=== PATIENT | female | born 1960 | race American Indian/Alaskan Native ===

== ENCOUNTER 2017-03-06 08:07 | Outpatient (CLI) | payer BC ==
--- NOTE | 2017-03-06 10:09 | Mammography Report ---
Bilateral mammogram: Compared to 02/28/16. CAD study utilized. Findings: Scattered glandular parenchyma. No mass or microcalcification. Benign axillary nodes. Impression: Benign findings. Followup recommended. BI-RADS CATEGORY: 2 = Benign ACR BI-RADS MAMMOGRAPHIC CODES: 0 = Needs additional imaging evaluation; 1 = Negative; 2 = Benign; 3 = Probably benign; 4 = Suspicious; 5 = Malignant; 6 = Known biopsy-proven malignancy COMMENT: 1. Dense breast tissue, i.e., adenosis, fibrocystic changes, etc., may obscure an underlying neoplasm. 2. Approximately 10% of cancers are not detected with mammography. 3. A negative mammography report should not delay biopsy if a clinically suspicious mass is present. COMMENT: Patient follow-up letters are generated in [employer].
== END 2017-03-06 08:08 | disposition home or self-care (01) ==
LOC: MAMMO 08:07
PROVIDERS: ATTEND Nurse Practitioner Women's Health
DX: Z12.31 Encounter for screening mammogram for malignant neoplasm of breast (principal)
CPT/HCPCS: 77067; G0202

== ENCOUNTER 2018-03-07 08:01 | Outpatient (CLI) | payer BC ==
--- NOTE | 2018-03-07 14:37 | Mammography Report ---
BILATERAL DIGITAL SCREENING MAMMOGRAM with CAD: 03/07/18 08:01:00 CLINICAL: Routine screening. COMPARISON:03/06/17 and 02/28/16 FINDINGS: The breasts are heterogeneously dense, which may obscure small masses. A left axillary lymph node on the MLO view has minimal central fat, measures 3.6 cm maximum and requires additional imaging.No mass, architectural distortion or suspicious calcifications. IMPRESSION: An enlarged left axillary lymph node with abnormal morphology requiring further workup. BI-RADS CATEGORY: 0 -- Additional Imaging Evaluation Required RECOMMENDATION: Recall for a left axillary ultrasound and global left breast ultrasound. ACR BI-RADS MAMMOGRAPHIC CODES: 0 = Needs additional imaging evaluation; 1 = Negative; 2 = Benign; 3 = Probably benign; 4 = Suspicious; 5 = Malignant; 6 = Known biopsy-proven malignancy COMMENT: 1. Dense breast tissue, i.e., adenosis, fibrocystic changes, etc., may obscure an underlying neoplasm. 2. Approximately 10% of cancers are not detected with mammography. 3. A negative mammography report should not delay biopsy if a clinically suspicious mass is present. COMMENT: Patient follow-up letters are generated via our [employer] application.
== END 2018-03-07 08:02 | disposition home or self-care (01) ==
LOC: MAMMO 08:01
PROVIDERS: ATTEND Nurse Practitioner Women's Health
DX: Z12.31 Encounter for screening mammogram for malignant neoplasm of breast (principal)
CPT/HCPCS: 77067

== ENCOUNTER 2018-04-18 09:28 | Outpatient (CLI) | payer BC ==
--- NOTE | 2018-04-25 16:34 | Ultrasound Report ---
LEFT BREAST ULTRASOUND: 04/18/18 09:28:00 CLINICAL: Enlarged left axillary lymph node on a screening mammogram. COMPARISON: 03/07/18 mammogram. FINDINGS: Ultrasound of the left breast(including all four quadrants and the retroareolar area) was performed and demonstrated no mass, cyst or shadowing. Ultrasound of the left axilla demonstrated an enlarged abnormal lymph node with minimal central fat. The lymph node measures 3.3 x 2.3 x 2.3 cm. IMPRESSION: An enlarged left axillary lymph node with abnormal morphology and otherwise negative left breast ultrasound. Recommend ultrasound guided biopsy of the left axillary lymph node to exclude malignancy. BI-RADS 4--Suspicious
== END 2018-04-18 09:29 | disposition home or self-care (01) ==
LOC: US 09:28
PROVIDERS: ATTEND Nurse Practitioner Women's Health
DX: R92.8 Other abnormal and inconclusive findings on diagnostic imaging of breast (principal); R59.0 Localized enlarged lymph nodes; Z88.1 Allergy status to other antibiotic agents; Z88.8 Allergy status to other drugs, medicaments and biological substances

== ENCOUNTER 2019-03-11 10:13 | Outpatient (CLI) | payer BC ==
--- NOTE | 2019-03-11 11:11 | Mammography Report ---
BILATERAL DIGITAL DIAGNOSTIC MAMMOGRAM with CAD: 03/11/19 10:13:00 CLINICAL: Known left breast cancer diagnosed by stereotactic biopsy 09/12/18. Pathology: Invasive lobular carcinoma. She also had an MRI biopsy on 09/20/18 demonstrating ADH. She has not had surgery. COMPARISON:08/27/18 bilateral mammogram and left mammograms from 09/20/18 and 09/12/18. FINDINGS: The breasts are heterogeneously dense, which may obscure small masses.A stable irregular left upper inner mass with a biopsy clip correlates with the known cancer. No other mass. No architectural distortion or suspicious calcifications. The right breast is negative. IMPRESSION: Left breast cancer with a stable mammogram. Negative right breast. BI-RADS CATEGORY: 6 -- Known Cancer COMMENT: 1. Dense breast tissue, i.e., adenosis, fibrocystic changes, etc., may obscure an underlying neoplasm. 2. Approximately 10% of cancers are not detected with mammography. 3. A negative mammography report should not delay biopsy if a clinically suspicious mass is present. COMMENT: Patient follow-up letters are generated by our [employer] application.
== END 2019-03-11 10:14 | disposition home or self-care (01) ==
LOC: SPVWC 10:13
PROVIDERS: ATTEND Surgery
DX: C50.912 Malignant neoplasm of unspecified site of left female breast (principal)
CPT/HCPCS: 77066

== ENCOUNTER 2019-04-28 08:22 | Observation (INO) | payer BC ==
[2019-04-28] MEDS ORDERED: SUBLIMAZE IV NR (09:11)
--- NOTE | 2019-04-28 09:11 | Anesthesia Consultation ---
Anesthesia Consult and Med Hx Date of service: 04/28/19 - Airway Anesthetic Teeth Evaluation: Good ROM Head & Neck: Adequate Mental/Hyoid Distance: Adequate Mallampati Class: Class II Intubation Access Assessment: Good - Pulmonary Exam CTA: Yes - Cardiac Exam Cardiac Exam: RRR - Pre-Operative Health Status ASA Pre-Surgery Classification: ASA3 Proposed Anesthetic Plan: General Nerve Block: B/L PEC Block - Pulmonary Hx Smoking: No Hx Asthma: Yes (INHALER PRN) Hx Sleep Apnea: No (ARPAN PRE SCREEN LOW RISK) - Cardiovascular System Hx Hypertension: Yes (2006- OFF MEDS X 1 YR) Hx Heart Murmur: Yes (CAUSES NO PROBLEMS) - Central Nervous System Hx Back Pain: Yes (NECK PAIN) - Additional Comments Anesthesia Medical History Comments: Cardiac clearance on chart , for PEC Block
--- NOTE | 2019-04-28 09:11 | Anesthesia Day of Surgery ---
Anesthesia Day of Surgery - Day of Surgery Patient Examined: Yes Patient H&P Reviewed: Yes Patient is NPO: Yes
[2019-04-28] MEDS ORDERED: XYLOCAINE 1% 20 mL ONE (09:31)
[2019-04-28] MEDS ORDERED: MARCAINE-EPI 0.5%-1:200,000 INFILTRATI ONE (09:32)
[2019-04-28] MEDS ORDERED: VERSED IV NR (10:00)
[2019-04-28] MEDS ORDERED: VANCOMYCIN/NS 1 GM/250 ML 1 GM/250 ML BAG IV NR (10:00)
[2019-04-28] MEDS ORDERED: DIPRIVAN 10 MG/ML IV ONE (10:17)
[2019-04-28] MEDS ORDERED: PROAIR IH ONE (10:17)
[2019-04-28] MEDS ORDERED: SUBLIMAZE ONE (10:18)
[2019-04-28] MEDS: LACTATED RINGERS 1,000 ML IV SCH ×2 (10:20→23:41)
[2019-04-28] MEDS ORDERED: NACL P/F VIAL (10 ML) 10 ML ONE (10:46)
[2019-04-28] MEDS ORDERED: METHYLENE BLUE ONE (10:47)
[2019-04-28] MEDS ORDERED: PHENYLEPHRINE/NS Syringe 1,000 MCG/10 ML IV ONE (12:00)
[2019-04-28] MEDS ORDERED: WATER FOR IRRIG STERILE IR ONE (12:31)
[2019-04-28] MEDS ORDERED: ZEMURON IV ONE (12:45)
[2019-04-28] MEDS ORDERED: ZOFRAN ONE (12:45)
[2019-04-28] MEDS ORDERED: XYLOCAINE MPF 2% ONE (12:45)
[2019-04-28] MEDS ORDERED: METHYLENE BLUE IRRIGATION ONE (12:59)
[2019-04-28] MEDS ORDERED: NACL P/F VIAL (10 ML) INFILTRATI ONE (13:10)
--- NOTE | 2019-04-28 14:13 | Mammography Report ---
BREAST SPECIMEN RADIOGRAPH LEFT BREAST HISTORY: Left breast cancer. COMPARISON: 09/12/2018 mammogram FINDINGS/IMPRESSION: The submitted radiograph demonstrates 2 localizer clips in the mastectomy specimen. Signer Name: Catracho De La Garza MD Signed: 04/28/2019 2:08 PM Workstation Name: [id number]
[2019-04-28] MEDS ORDERED: BLOXIVERZ ONE (14:31)
[2019-04-28] MEDS ORDERED: ROBINUL ONE (14:31)
[2019-04-28] MEDS ORDERED: TORADOL ONE (14:31)
--- NOTE | 2019-04-28 14:31 | Short Stay Summary ---
Short Stay Documentation Date of service: 04/28/19 - History H&P: obtained from office - Allergies and Medications Current Medications: Allergies doxycycline Allergy (Verified 09/19/18 16:34) Itching Penicillins Allergy (Verified 09/19/18 16:34) Itching prednisone Allergy (Verified 09/19/18 16:34) Shortness of Breath Sulfa (Sulfonamide Antibiotics) Allergy (Unverified 02/28/16 08:02) Itching sulfamethoxazole [From Bactrim] Allergy (Unverified 02/28/16 08:02) Itching trimethoprim [From Bactrim] Allergy (Unverified 02/28/16 08:02) Itching Home Medications Medication Instructions Recorded Confirmed Last Taken Type RX: Ascorbic Acid [Vitamin C] 1,000 mg PO DAILY 09/19/18 04/28/19 04/26/19 09:00 History RX: Calcium Carbonate [Calcium] 500 mg PO DAILY 09/19/18 04/28/19 04/26/19 09:00 History RX: Cyclobenzaprine [Flexeril 10 10 mg PO TID PRN 09/19/18 04/28/19 04/26/19 09:00 History MG TAB] RX: Fluticasone [Flonase] 1 spray NS PRN PRN 09/19/18 04/28/19 04/26/19 09:00 History RX: Multivitamin/Iron/Folic Acid 1 each PO DAILY 09/19/18 04/28/19 04/26/19 09:00 History [Centrum Adults Tablet] RX: Vitamin E 400 unit PO DAILY 09/19/18 04/28/19 04/26/19 09:00 History RX: ALBUTEROL Inhaler(NF) 1 puff IH PRN PRN 09/23/18 04/28/19 03/10/19 09:00 History [VENTOLIN Inhaler(NF)] Cholecalciferol (Vitamin D3) 2,000 unit PO QDAY 04/22/19 04/28/19 04/24/19 09:00 History [Vitamin D3 2,000 UNIT CAP] Active Medications Fentanyl (Sublimaze) 100 mcg IV ONCE NR Stop: 04/28/19 16:00 Lactated Ringer's (Lactated Ringers) 1,000 mls @ 100 mls/hr IV DIRECT GEORGIE Last Admin: 04/28/19 10:20 Dose: 100 mls/hr Documented by: Midazolam HCl (Versed) 2 mg IV PREOP NR Stop: 04/28/19 23:59 - Brief post op/procedure progress note Date of procedure: 04/28/19 Pre-op diagnosis: Left breast cancer of the upper outer quadrant Post-op diagnosis: same Procedure: Right total mastectomy, left total mastectmoy with SLNB Anesthesia: GETA Findings: Bilateral total mastectomy; left SLNB Surgeon: ELENA AGUILAR Volcanology Teacher: RAFY HOYT Estimated blood loss: 50-100ml Pathology: list (bilateral mastectomy; left SLNB x4 and negative for malignancy) Specimen disposition: to lab Condition: stable - Disposition Condition at discharge: Good Disposition: DC/TX-02 SHRT-[facility]M [facility] HOSP IP Short Stay Discharge Plan Activity: other (no heavy lifting) Diet: regular Wound: keep clean and dry (may shower in 48 hours) Follow up with: ADI KAUFMAN MD [Primary Care Provider] - 7 Days ELENA AGUILAR MD [Staff Physician] - 7 Days
--- NOTE | 2019-04-28 14:36 | Operative Report ---
Operative Report Operative Report: Operative Report: Date of Service: April 28, 2019 Preoperative diagnosis: Left breast cancer of the upper inner quadrant Postoperative diagnosis: Same Procedure: Left total mastectomy with sentinel lymph node biopsy Surgeon: Bethany Scherer M.D. Wood Last Maker: Nasreen Payne M.D. Anesthesia: Gen. Findings: Left breast clip present within left total mastectomy; x4 SLNs and negative for malignancy. Complications: None Drains: Bilateral 19 Fr drains Estimated blood loss: 50- 100 cc Disposition: PACU in good condition Indications for operative procedure: This is a 58-year-old lady with stage II left breast cancer of the upper inner quadrant, IDCA grade 3 [id number] ER pos itive. She recently completed neoadjuvant chemotherapy. Recommendations were to proceed with a left total mastectomy with SLNB and possible ALND, did not recommend breast conservation given concerns multicentruic breast cancer. She wished to proceed with the above procedure and declined plastic reconstructive surgery. Procedure in detail: The patient was taken to the operating room and was placed supine. Gen. anesthesia was administered. The left nipple was injected with radioisotope and 1 cc of methylene blue with 1 cc of saline. Bilateral chest and axillas were prepped and draped in the normal sterile operative fashion. Timeout was performed. Typical mastectomy incision markings were made. Attention was taken towards the right breast first. First began raising of the superior flap to the level of the clavicle superiorly and posteriorly to the pectoralis muscle. Followed by raising of the medial flap to the level of the sternum and posteriorly to the pectoralis muscle. Followed by raising of the lateral flap to the level of the latissimus dorsi muscle and taken down posteriorly. Then proceeded with raising of the inferior flap to the level of the inframammary fold taken posterior to the pectoralis muscle. The mastectomy/breast was removed from the pectoralis muscle without incident. The specimen was appropriately marked and sent to pathology. Hemostasis was obtained. One 19 Fr drain was placed. The subcutaneous tissues were approximated and closed using interrupted 3-0 Vicryl and the skin closed using a 4-0 running Monocryl and dermabond. Attention was then taken towards the left breast. A gamma probe was inserted into the axilla to identify the sentinel lymph node location with uptake noted. A skin incision was made with a 10 blade knife and dissection taken down to the subcutaneous tissues. First began raising of the superior flap to the level of the clavicle superiorly and posteriorly to the pectoralis muscle. Followed by raising of the medial flap to the level of the sternum and posteriorly to the pectoralis muscle. Followed by raising of the lateral flap to the level of the latissimus dorsi muscle and taken down posteriorly. The gamma probe was inserted into the axilla, the axillary fascia was opened and 4 sentinel lymph nodes were identified and sent to pathology, one lymph node positive prior to chemotherapy. All remaining counts were less than 10% of the highest count lymph node. Pathology with findings with all sentinel lymph nodes negative for malignancy noted on frozen section. Then proceeded with raising of the inferior flap to the level of the inframammary fold taken posterior to the pectoralis muscle. The mastectomy/breast was removed from the pectoralis muscle without incident. The specimen was appropriately marked and sent to radiology with findings of breast clip present and sent to pathology. Hemostasis was obtained. One 19 Fr drain was placed. The subcutaneous tissues were approximated and closed using interrupted 3-0 Vicryl and the skin closed using a 4-0 running Monocryl and dermabond. She tolerated surgery very well and was awaken from anesthesia without any complications and then transported to PACU in good condition.
[2019-04-28] MEDS ORDERED: TYLENOL PO PRN (14:37)
[2019-04-28] MEDS ORDERED: SODIUM CHLORIDE FLUSH SYRINGE 10 ML IV PRN (14:37)
[2019-04-28] MEDS ORDERED: REGLAN PO PRN (14:37)
[2019-04-28] MEDS ORDERED: ZOFRAN IV PRN (14:37)
[2019-04-28] MEDS ORDERED: BENADRYL PO PRN (14:37)
[2019-04-28] MEDS ORDERED: MORPHINE IV PRN (14:39)
[2019-04-28] MEDS ORDERED: LACTATED RINGERS 2,000 ML ONE (14:47)
[2019-04-28] MEDS ORDERED: LACTATED RINGERS 1,000 ML IV SCH (15:00)
[2019-04-28] MEDS: DILAUDID IV PRN ×2 (15:13→15:30)
[2019-04-28] MEDS ORDERED: DILAUDID ONE (15:14)
[2019-04-28] MEDS ORDERED: FLONASE NS PRN (17:24)
[2019-04-28] MEDS ORDERED: PROAIR IH PRN (17:24)
[2019-04-28] MEDS ORDERED: PROVENTIL IH PRN (17:27)
--- NOTE | 2019-04-29 07:28 | Progress Note ---
Assessment and Plan This is a 58 year old lady POD# bilateral mastectomy with left SLNB. 1. No acute events overnight. Pain in good control. 2. Bilateral chest incisions healing well. 3. HENNA drains to bulb suction. Monitor output. 4. OOB to hallway. 5. D/C planning for today/tomorrow. Subjective Date of service: 04/29/19 Principal diagnosis: Left breast cancer Interval history: POD#1 bilateral mastectomy with left SLNB Objective - Constitutional Vitals: Vital Signs - 12hr 04/28/19 04/28/19 04/28/19 20:35 20:40 20:46 Temperature 97.4 F L Pulse Rate 79 Pulse Rate [ 80 Anterior Bilateral Upper Lobe] Respiratory 18 Rate Respiratory 20 Rate [Anterior Bilateral Upper Lobe] Blood Pressure 108/71 O2 Sat by Pulse 99 99 Oximetry 04/29/19 04/29/19 00:02 04:32 Temperature 98.2 F 98.4 F Pulse Rate 93 H 89 Pulse Rate [ Anterior Bilateral Upper Lobe] Respiratory 20 20 Rate Respiratory Rate [Anterior Bilateral Upper Lobe] Blood Pressure 123/67 106/55 O2 Sat by Pulse 97 97 Oximetry General appearance: Present: no acute distress - EENT Eyes: PERRL, EOM intact ENT: hearing intact, clear oral mucosa Ears: bilateral: normal - Neck Neck: supple - Respiratory Respiratory effort: normal Respiratory: bilateral: CTA - Breasts Breasts: other (bilateral chest incisions healing well, no hematoma; incision c/d/i; HENNA drains to bulb suction; skin well perfused) - Cardiovascular Rhythm: regular Extremities: no ischemia, pulses intact, pulses symmetrical, No edema, normal temperature, normal color, Full ROM - Gastrointestinal General gastrointestinal: Present: soft, non-tender, non-distended - Genitourinary Female genitourinary: deferred - Integumentary Integumentary: clear, warm, dry - Musculoskeletal Musculoskeletal: strength equal bilaterally - Neurologic Neurologic: CNII-XII intact, moves all extremities - Psychiatric Psychiatric: appropriate mood/affect, intact judgment & insight, memory intact, cooperative Medications & Allergies - Medications Allergies/Adverse Reactions: Allergies doxycycline Allergy (Verified 09/19/18 16:34) Itching Penicillins Allergy (Verified 09/19/18 16:34) Itching prednisone Allergy (Verified 09/19/18 16:34) Shortness of Breath Sulfa (Sulfonamide Antibiotics) Allergy (Unverified 02/28/16 08:02) Itching sulfamethoxazole [From Bactrim] Allergy (Unverified 02/28/16 08:02) Itching trimethoprim [From Bactrim] Allergy (Unverified 02/28/16 08:02) Itching Home Medications: Home Medications Medication Instructions Recorded Confirmed Last Taken Type Ascorbic Acid [Vitamin C] 1,000 mg PO DAILY 09/19/18 04/28/19 04/26/19 09:00 History Calcium Carbonate [Calcium] 500 mg PO DAILY 09/19/18 04/28/19 04/26/19 09:00 History Cyclobenzaprine [Flexeril 10 MG 10 mg PO TID PRN 09/19/18 04/28/19 04/26/19 09:00 History TAB] Fluticasone [Flonase] 1 spray NS PRN PRN 09/19/18 04/28/19 04/26/19 09:00 History Multivitamin/Iron/Folic Acid 1 each PO DAILY 09/19/18 04/28/19 04/26/19 09:00 History [Centrum Adults Tablet] Vitamin E 400 unit PO DAILY 09/19/18 04/28/19 04/26/19 09:00 History ALBUTEROL Inhaler(NF) [VENTOLIN 1 puff IH PRN PRN 09/23/18 04/28/19 03/10/19 09:00 History Inhaler(NF)] Cholecalciferol (Vitamin D3) 2,000 unit PO QDAY 04/22/19 04/28/19 04/24/19 09:00 History [Vitamin D3 2,000 UNIT CAP] Active Medications: Generic Name Dose Route Start Last Admin Trade Name Freq PRN Reason Stop Dose Admin Acetaminophen 650 mg 04/28/19 14:37 Tylenol PO Q6H PRN Pain MILD(1-3)/Fever >100.5/PAK Albuterol 2.5 mg 04/28/19 17:27 04/28/19 20:40 Proventil IH 2.5 mg Q4HRT PRN Administration Shortness Of Breath Diphenhydramine HCl 25 mg 04/28/19 14:37 Benadryl PO Q8H PRN Itching Docusate Sodium 100 mg 04/28/19 22:00 Colace PO BID GEORGIE Fluticasone Propionate 50 mcg 04/28/19 17:24 Flonase NS DAILY PRN Allergy Symptoms Hydromorphone HCl 0.5 mg 04/28/19 15:09 04/28/19 15:30 Dilaudid IV 0.5 mg Q10MIN PRN Administration Pain , Severe (7-10) Lactated Ringer's 1,000 mls @ 100 mls/hr 04/28/19 10:00 04/28/19 23:41 Lactated Ringers IV 100 mls/hr DIRECT GEORGIE Administration Lactated Ringer's 1,000 mls @ 125 mls/hr 04/28/19 15:00 Lactated Ringers IV DIRECT GEORGIE Metoclopramide HCl 10 mg 04/28/19 14:37 Reglan PO Q6H PRN Nausea And Vomiting Morphine Sulfate 2 mg 04/28/19 14:39 Morphine IV Q4H PRN Pain, Moderate (4-6) Ondansetron HCl 4 mg 04/28/19 14:37 04/28/19 17:04 Zofran IV 4 mg Q8H PRN Administration N/V unrelieved by Reglan Oxycodone/Acetaminophen 1 tab 04/28/19 14:37 Percocet 5/325 PO Q6H PRN Pain, Moderate (4-6) Sodium Chloride 10 ml 04/28/19 14:37 Sodium Chloride Flush Syringe 10 Ml IV PRN PRN LINE FLUSH
[2019-04-29] MEDS: PERCOCET 5/325 PO PRN ×2 (09:06→22:08)
[2019-04-29] MEDS: COLACE PO SCH ×2 (09:07→22:06)
--- NOTE | 2019-04-29 10:08 | Post Anesthesia Evaluation ---
- Post Anesthesia Evaluation Patient Participated: Yes Airway Patent: Yes Stable Respiratory Function: Yes Nausea/Vomiting: No Temp > 96.8F: Yes Pain Manageable: Yes Adequeate Hydration: Yes Anesthesia Complications: No Block Receding Appropriately: Yes Patient on Ventilator: No
--- NOTE | 2019-04-30 09:20 | Progress Note ---
Assessment and Plan Ms. Nichols is a 58 year old lady status post bilateral mastectomy with left SLNB, POD #2. 1) No acute events overnight. No complaints per patient. In a good mood. 2) Chest wall incisions healing well, HENNA drains to bulb suction and functioning well. 3) Discharge planned for today. Patient verbalized understanding. Subjective Date of service: 04/30/19 Principal diagnosis: Left breast cancer Objective - Constitutional Vitals: Vital Signs - 12hr 04/29/19 04/29/19 04/29/19 22:08 23:29 23:45 Temperature 98.3 F Pulse Rate 94 H Respiratory 18 18 Rate Blood Pressure 99/48 O2 Sat by Pulse 98 Oximetry 04/30/19 04:46 Temperature 97.9 F Pulse Rate 88 Respiratory 18 Rate Blood Pressure 109/60 O2 Sat by Pulse 96 Oximetry General appearance: Present: no acute distress, well-nourished - EENT Eyes: PERRL, EOM intact ENT: hearing intact, clear oral mucosa, dentition normal Ears: bilateral: normal - Neck Neck: supple, normal ROM - Respiratory Respiratory effort: normal Respiratory: bilateral: CTA - Breasts Breasts: other (Chest incisions well healed bilaterally, no hematoma, no erythema, no discharge, incisions clean, dry and intact; HENNA drains in place and functioning with sero-sanguinous fluid in bulbs) - Cardiovascular Rhythm: regular Extremities: no ischemia, pulses intact, pulses symmetrical, No edema, normal temperature, normal color, Full ROM - Gastrointestinal General gastrointestinal: Present: soft, non-tender, non-distended Rectal Exam: deferred - Genitourinary Female genitourinary: deferred - Integumentary Integumentary: clear, warm, normal turgor - Musculoskeletal Musculoskeletal: strength equal bilaterally - Neurologic Neurologic: CNII-XII intact, moves all extremities - Psychiatric Psychiatric: appropriate mood/affect, intact judgment & insight, memory intact, cooperative Medications & Allergies - Medications Allergies/Adverse Reactions: Allergies doxycycline Allergy (Verified 09/19/18 16:34) Itching Penicillins Allergy (Verified 09/19/18 16:34) Itching prednisone Allergy (Verified 09/19/18 16:34) Shortness of Breath Sulfa (Sulfonamide Antibiotics) Allergy (Unverified 02/28/16 08:02) Itching sulfamethoxazole [From Bactrim] Allergy (Unverified 02/28/16 08:02) Itching trimethoprim [From Bactrim] Allergy (Unverified 02/28/16 08:02) Itching Home Medications: Home Medications Medication Instructions Recorded Confirmed Last Taken Type Ascorbic Acid [Vitamin C] 1,000 mg PO DAILY 09/19/18 04/28/19 04/26/19 09:00 History Calcium Carbonate [Calcium] 500 mg PO DAILY 09/19/18 04/28/19 04/26/19 09:00 History Cyclobenzaprine [Flexeril 10 MG 10 mg PO TID PRN 09/19/18 04/28/19 04/26/19 09:00 History TAB] Fluticasone [Flonase] 1 spray NS PRN PRN 09/19/18 04/28/19 04/26/19 09:00 History Multivitamin/Iron/Folic Acid 1 each PO DAILY 09/19/18 04/28/19 04/26/19 09:00 History [Centrum Adults Tablet] Vitamin E 400 unit PO DAILY 09/19/18 04/28/19 04/26/19 09:00 History ALBUTEROL Inhaler(NF) [VENTOLIN 1 puff IH PRN PRN 09/23/18 04/28/19 03/10/19 09:00 History Inhaler(NF)] Cholecalciferol (Vitamin D3) 2,000 unit PO QDAY 04/22/19 04/28/19 04/24/19 09:00 History [Vitamin D3 2,000 UNIT CAP] oxyCODONE /ACETAMINOPHEN [Percocet 1 tab PO Q6HR PRN #30 tablet 04/29/19 Unknown Rx 5/325] Active Medications: Generic Name Dose Route Start Last Admin Trade Name Freq PRN Reason Stop Dose Admin Acetaminophen 650 mg 04/28/19 14:37 Tylenol PO Q6H PRN Pain MILD(1-3)/Fever >100.5/PAK Albuterol 2.5 mg 04/28/19 17:27 04/28/19 20:40 Proventil IH 2.5 mg Q4HRT PRN Administration Shortness Of Breath Diphenhydramine HCl 25 mg 04/28/19 14:37 Benadryl PO Q8H PRN Itching Docusate Sodium 100 mg 04/28/19 22:00 04/29/19 22:06 Colace PO 100 mg BID GEORGIE Administration Fluticasone Propionate 50 mcg 04/28/19 17:24 Flonase NS DAILY PRN Allergy Symptoms Hydromorphone HCl 0.5 mg 04/28/19 15:09 04/28/19 15:30 Dilaudid IV 0.5 mg Q10MIN PRN Administration Pain , Severe (7-10) Lactated Ringer's 1,000 mls @ 100 mls/hr 04/28/19 10:00 04/28/19 23:41 Lactated Ringers IV 100 mls/hr DIRECT GEORGIE Administration Lactated Ringer's 1,000 mls @ 125 mls/hr 04/28/19 15:00 Lactated Ringers IV DIRECT GEORGIE Metoclopramide HCl 10 mg 04/28/19 14:37 Reglan PO Q6H PRN Nausea And Vomiting Morphine Sulfate 2 mg 04/28/19 14:39 Morphine IV Q4H PRN Pain, Moderate (4-6) Ondansetron HCl 4 mg 04/28/19 14:37 04/28/19 17:04 Zofran IV 4 mg Q8H PRN Administration N/V unrelieved by Reglan Oxycodone/Acetaminophen 1 tab 04/28/19 14:37 04/29/19 22:08 Percocet 5/325 PO 1 tab Q6H PRN Administration Pain, Moderate (4-6) Sodium Chloride 10 ml 04/28/19 14:37 Sodium Chloride Flush Syringe 10 Ml IV PRN PRN LINE FLUSH
--- NOTE | 2019-04-30 09:41 | Discharge Summary ---
Providers - Providers Date of Admission: 04/28/19 15:21 Date of discharge: 04/30/19 Attending physician: ELENA AGUILAR Primary care physician: ADI KAUFMAN MD Hospitalization Reason for admission: S/p bilateral mastectomy w/ left SLNB, pain control, bleeding monitoring Condition: Good Disposition: DC/TX-06 HOME UNDER HOME [facility] Core Measure Documentation - Palliative Care Palliative Care/ Comfort Measures: Not Applicable - Core Measures Any of the following diagnoses?: none Exam - Constitutional Vitals: Temp Pulse Resp BP Pulse Ox 97.9 F 88 18 109/60 96 04/30/19 04:46 04/30/19 04:46 04/30/19 04:46 04/30/19 04:46 04/30/19 04:46 General appearance: Present: no acute distress - EENT Eyes: Present: PERRL, EOM intact ENT: hearing intact, clear oral mucosa - Neck Neck: Present: supple, normal ROM - Respiratory Respiratory effort: normal Respiratory: bilateral: CTA - Cardiovascular Rhythm: regular - Extremities Extremities: no ischemia, pulses intact, normal temperature, normal color, Full ROM - Abdominal General gastrointestinal: Present: soft, non-tender, non-distended Female genitourinary: Present: deferred - Rectal Rectal Exam: deferred - Integumentary Integumentary: Present: clear, warm, normal turgor - Musculoskeletal Musculoskeletal: strength equal bilaterally - Psychiatric Psychiatric: appropriate mood/affect, intact judgment & insight, memory intact, cooperative - Neurologic Neurologic: CNII-XII intact, moves all extremities Plan Activity: other (No heavy lifting, no more than 5 lbs) Weight Bearing Status: Full Weight Bearing Diet: regular Wound: keep clean and dry, per your surgeon's advice, drain care as instructed Follow up with: ELENA AGUILAR MD [Staff Physician] - 7 Days ADI KAUFMAN MD [Primary Care Provider] - 7 Days Forms: [facility] Discharge Summary, Discharge Signature Page Prescriptions: oxyCODONE /ACETAMINOPHEN [Percocet 5/325] 1 tab PO Q6HR PRN #30 tablet PRN Reason: Pain
[2019-04-30 14:30] VITALS: BP 122/75
== END 2019-04-30 13:30 | disposition home health service (06) ==
LOC: OR 08:22 → OB 15:21
PROVIDERS: ADMIT Surgery; ATTEND Surgery
DX: C50.212 Malignant neoplasm of upper-inner quadrant of left female breast (principal)
CPT/HCPCS: 19303; 38525; 38792; 64450; 76098; 88305; 88307; 88309; 88331; 88341; 88342; 94640; 94760; 96365; 96375; G0378; J1170; J1885; J2250; J2370; J2405; J2704; J2710; J3010; J3370; J7120; Q9968; 88333

== ENCOUNTER 2020-09-24 09:00 | Day surgery (SDC) | payer BC ==
[2020-09-24] MEDS ORDERED: BUPIVACAINE/PF (0.25%) 2.5 MG/ML 10 ML VIAL INFILTRATI ONE (12:59)
[2020-09-24] MEDS ORDERED: LIDOCAINE (1%) 10 MG/1 ML VIAL 20 ML MDV ONE (12:59)
[2020-09-24] MEDS ORDERED: LIDOCAINE (1%) 10 MG/1 ML VIAL 20 ML MDV INFILTRATI ONE (13:19)
[2020-09-24] MEDS ORDERED: SODIUM CHLORIDE 0.9% IRR 1,500 ML BOTTLE IR ONE (13:19)
[2020-09-24 13:25] VITALS: BP 138/80
--- NOTE | 2020-09-24 13:51 | Procedure Note ---
Date of procedure: 09/24/20 Pre-op diagnosis: removal of port a cath Post-op diagnosis: same Procedure: removal of port a cath Findings: HPI and indication: Patient is a 59-year-old female with breast cancer who underwent port placement and chemotherapy. She is completed her chemotherapy treatment and port can now be removed. All risk, benefits, alternatives to port removal were discussed with the patient and questions answered. Consent was obtained. Patient identified and positioned on stretcher in supine position. The RIGHT anterior chest was prepped and draped in usual sterile fashion a timeout performed. Local anesthetic infiltrated to skin and subcutaneous tissue at the intended incision site at the old scar. Using a 15 blade an incision was made through the old scar and subcutaneous tissue. Dissection was carried down through skin and subcutaneous tissue using blunt dissection with a hemostat. The catheter was identified and grasped between 2 hemostats. The catheter was cut in between the hemostats using Metzenbaum scissors. The catheter was removed without difficulty and pressure held at the site for 5 minutes. The subcutaneous port was then dissected free from the capsule using a blunt dissection with a hemostat and sharp dissection with a scalpel. The port was then removed from the wound and both parts were passed off the table as a specimen for identification purposes. The wound was irrigated and hemostasis very carefully ensured. The deep dermal layer was then closed with interrupted 3-0 Vicryl stitches. The skin was approximated using 4-0 Monocryl subcuticular running stitch. Skin glue was applied. The incision was then covered with a 2x2 gauze and Tegaderm. At the end of the case, all sponge, instrument, sharp counts were correct x2. The patient tolerated the procedure well and was discharged to home in stable condition Anesthesia: local Surgeon: GISEL AMARAL Estimated blood loss: minimal Pathology: list (port and catheter for ID only) Specimen disposition: to lab Condition: stable Disposition: other (home)
== END 2020-09-24 13:00 | disposition home or self-care (01) ==
LOC: OR 09:00
PROVIDERS: ATTEND Surgery
DX: Z45.2 Encounter for adjustment and management of vascular access device (principal); G62.9 Polyneuropathy, unspecified; M19.90 Unspecified osteoarthritis, unspecified site; I10 Essential (primary) hypertension; Z85.3 Personal history of malignant neoplasm of breast; Z98.890 Other specified postprocedural states; Z90.13 Acquired absence of bilateral breasts and nipples; Z80.8 Family history of malignant neoplasm of other organs or systems; Z88.0 Allergy status to penicillin; Z88.2 Allergy status to sulfonamides; Z88.8 Allergy status to other drugs, medicaments and biological substances
CPT/HCPCS: 88300; 88302